=== PATIENT | male | born 1950 | race Caucasian/White ===

== ENCOUNTER 2023-07-07 09:39 | Outpatient (RCR) | payer MEDICARE, OTHER, SELFPAY | END 2023-07-07 23:59 | disposition home or self-care (01) | LOC: RPT 09:39 | PROVIDERS: ATTENDING PHYSICIAN Nurse Practitioner Adult Health; FAMILY PHYSICIAN Internal Medicine | DX: M54.2 Cervicalgia (principal); Z73.6 Limitation of activities due to disability | CPT/HCPCS: 97010; 97110; 97140; 97162; 97535 ==

== ENCOUNTER 2023-07-30 11:06 | Outpatient (RCR) | payer MEDICARE, OTHER, SELFPAY | END 2023-07-30 11:48 | disposition home or self-care (01) | LOC: RPT 11:06 | PROVIDERS: ATTENDING PHYSICIAN Nurse Practitioner Adult Health; FAMILY PHYSICIAN Internal Medicine | DX: M54.2 Cervicalgia (principal); Z73.6 Limitation of activities due to disability | CPT/HCPCS: 97010; 97110; 97112; 97140 ==

== ENCOUNTER → 2023-08-18 14:40 | Outpatient (REF) | payer MEDICARE, OTHER, SELFPAY ==
[2023-08-18 16:24] LABS: TSH Reflex To Free T4 0.67 uIU/ml (0.47-4.68)
== END ==
LOC: REG 14:40
PROVIDERS: ATTENDING PHYSICIAN Nurse Practitioner Adult Health
DX: E03.9 Hypothyroidism, unspecified (principal)
CPT/HCPCS: 36415; 84443

== ENCOUNTER → 2023-08-31 11:31 | Outpatient (REF) | payer MEDICARE, OTHER, SELFPAY ==
[2023-08-31 14:26] LABS: Urine Albumin Negative (Neg - Trace); Urine Bilirubin Negative (Negative); Urine Character Clear (Clear); Urine Color Yellow; Urine Glucose Negative (Negative); Urine Ketone Negative (Negative); Urine Leukocyte Negative (Negative); Urine Nitrite Negative (Negative); Urine Occult Blood Negative (Negative); Urine Urobilinogen Negative (Neg - 1+)
== END ==
LOC: REG 11:31
PROVIDERS: ATTENDING PHYSICIAN Nurse Practitioner Adult Health; REFERRING PHYSICIAN Specialist
DX: R10.9 Unspecified abdominal pain (principal)
CPT/HCPCS: 81003

== ENCOUNTER → 2023-09-08 | Outpatient (REF) | payer MEDICARE, OTHER, SELFPAY | LOC: DHSLP | PROVIDERS: ATTENDING PHYSICIAN Internal Medicine Critical Care Medicine; FAMILY PHYSICIAN Nurse Practitioner Adult Health | DX: G47.33 Obstructive sleep apnea (adult) (pediatric) (principal) | CPT/HCPCS: 95800 ==

== ENCOUNTER → 2023-10-09 14:11 | Outpatient (REF) | payer MEDICARE, OTHER, SELFPAY | LOC: HWRAD 14:11 | PROVIDERS: ATTENDING PHYSICIAN Nurse Practitioner Adult Health | DX: R10.9 Unspecified abdominal pain (principal); Q62.0 Congenital hydronephrosis | CPT/HCPCS: 76770 ==

== ENCOUNTER → 2023-12-09 10:44 | Outpatient (REF) | payer MEDICARE, OTHER, SELFPAY ==
[2023-12-09 12:43] LABS: ALT (SGPT) 24 U/L (0-50); AST (SGOT) 30 U/L (17-59); Albumin 4.5 g/dl (3.5-5.0); Alkaline Phosphatase 66 U/L (38-126); Blood Urea Nitrogen 18 mg/dl (9-20); Calcium 9.3 mg/dl (8.4-10.2); Carbon Dioxide 29 mmol/L (22-30); Chloride 102 mmol/L (98-107); Glucose 102 mg/dl (70-99); HDL Cholesterol 62 mg/dl; LDL Cholesterol, Calculated 78 mg/dl; Potassium 4.7 mmol/L (3.5-5.1); Sodium 138 mmol/L (135-145); Total Bilirubin 0.7 mg/dl (0.2-1.3); Total Cholesterol 155 mg/dl (50-199); Total Protein 7.2 g/dl (6.3-8.2); Triglyceride 75 mg/dl (10-149); Very Low Density Lipoprotein 15 mg/dl (0-30); eGFR > 60.00
[2023-12-09 13:12] LABS: TSH Reflex To Free T4 5.04 uIU/ml (0.47-4.68)
[2023-12-09 13:41] LABS: Free T4 0.75 ng/dl (0.78-2.19)
== END ==
LOC: REG 10:44
PROVIDERS: ATTENDING PHYSICIAN Nurse Practitioner Adult Health; FAMILY PHYSICIAN Internal Medicine
DX: E03.9 Hypothyroidism, unspecified (principal); E78.5 Hyperlipidemia, unspecified
CPT/HCPCS: 36415; 80053; 80061; 84439; 84443

== ENCOUNTER → 2023-12-16 10:16 | Outpatient (REF) | payer MEDICARE, OTHER, SELFPAY | LOC: RAD 10:16 | PROVIDERS: ATTENDING PHYSICIAN Specialist; FAMILY PHYSICIAN Internal Medicine | DX: Q62.11 Congenital occlusion of ureteropelvic junction (principal) | CPT/HCPCS: 78708; A9539 ==

== ENCOUNTER → 2024-01-27 11:48 | Outpatient (REF) | payer MEDICARE, OTHER, SELFPAY ==
[2024-01-27 16:54] LABS: TSH Reflex To Free T4 4.97 uIU/ml (0.47-4.68)
[2024-01-27 17:56] LABS: Free T4 0.73 ng/dl (0.78-2.19)
== END ==
LOC: HWRAD 11:48
PROVIDERS: ATTENDING PHYSICIAN Nurse Practitioner Adult Health
DX: R10.9 Unspecified abdominal pain (principal); Z87.19 Personal history of other diseases of the digestive system; E03.9 Hypothyroidism, unspecified
CPT/HCPCS: 36415; 74177; 84439; 84443; Q9967

== ENCOUNTER 2024-02-28 16:58 | Emergency (ER) | payer MEDICARE, OTHER, SELFPAY ==
--- NOTE | 2024-02-28 18:28 | ED.MUSCINJ ---
HPI-Injury
General
Chief Complaint: Musculo-Skeletal Complaint
Source: patient
Exam Limitations: none
Time Seen by Provider: 02/28/24 18:12
History of Present Illness-Injury
Initial Injury comments:
73-year-old male presents complaining of left flank pain after striking his flank on a near. He states he has a extensive history of spinal surgery and left kidney dysfunction. He is concerned that he ruin his spinal fusion or injured his kidney.
He is not anticoagulated. The pain is slightly improved since the onset of the pain. This started today.
Past History
Past History
ED Past Medical History: CAD, GERD, Other (Diverticular disease, thyroid disease, arthritis, cardiac stents, melanoma) and Other
Social History
Tobacco: Non-smoker
Alcohol: Occasional
Personal:
Employment: Retired
Family History
Family History: CAD
Phy Exam
Physical Exam
Physical Exam:
General: Well-appearing male no acute respiratory distress
HEENT: Normocephalic atraumatic
Heart: Regular rate and rhythm no murmur
Lungs: Clear breath sounds heard throughout
Musculoskeletal exam: Mild tenderness over the midline of the lumbar spine and left costovertebral angle tenderness
Extremities: No cyanosis or edema
Injury Course
Orders/Labs/Results
Orders:
Orders
02/28/24 18:23
CT Abd/pelvis W Iv Cont Urgent
Comment:
Reason For Exam: left flank injury
02/28/24 18:44
Complete Blood Count/With Diff Urgent
Comprehensive Metabolic Panel Urgent
Abnormal Lab Results
02/28/24
18:44
RBC 3.59 L 10^6/uL
(4.70-6.10)
Hgb 11.6 L g/dL
(13.0-18.0)
Hct 33.8 L %
(39.0-52.0)
MCV 94.2 H fL
(80.0-94.0)
MCH 32.3 H pg
(27.0-31.0)
Absolute Monos (auto) 0.9 H 10^3/uL
(0.1-0.6)
Monocytes % 14.1 H %
(1.7-9.3)
02/28/24 18:44
02/28/24 18:44
MDM/Problems Addressed
Differential Diagnosis Includes:
Left flank pain aftter after striking it. Consider contusion versus renal injury. Patient quite concerned about his kidney. CT of the abdomen and pelvis with IV contrast pending.
*Critical Care Note
Total Time (30-74mins, 75-104mins- exclusive of procedures): Not Applicable
Update Note
Update Note:
CT scan negative for acute traumatic injury. Patient reassured. I suspect underlying contusion. Recommended Tylenol for pain. Stable for discharge
ED Attending Note
-
Portions of this chart may have been created with voice recognition software.� Occasional wrong word or��sound alike� substitutions may have occurred due to the inherent limitations of voice recognition software.
Discharge Plan
Departure
Patient Disposition: Home (Routine Discharge)
Date of Disposition: 02/28/24
Time of Disposition: 20:26
Patient with high blood pressure during this ER visit?: No
Discharge Problem:
Contusion
Prescriptions:
No Action
latanoprost 1 DROP drops
1 drp BOTH EYES HS
doxycycline hyclate 50 MG capsule
50 mg PO DAILY
venlafaxine [Effexor XR] 150 MG capsule,extended release 24hr
150 mg PO DAILY
Patient Comments:
take with 75 mg capsule every morning
Rx Instructions:
takes with 75 mg daily
omeprazole 40 MG capsule,delayed release(DR/EC)
40 mg PO DAILY
lamotrigine 100 MG tablet
150 mg PO BID
zolpidem [Ambien CR] 6.25 MG tablet,ext release multiphase
6.25 mg PO HS
fexofenadine [Karolyn] 180 MG tablet
180 mg PO DAILY
venlafaxine [Effexor XR] 37.5 MG capsule,extended release 24hr
75 mg PO DAILY
Patient Comments:
take with 150mg capsules every morning
Rx Instructions:
takes with 150 mg daily
alclometasone 0.05 % Cream
1 applic TOPICAL BID PRN (Reason: eczema)
aspirin [Ecotrin Low Strength] 81 mg Tablet,Delayed Release (Dr/Ec)
81 mg PO DAILY
levothyroxine 25 mcg Tablet
25 mcg PO DAILY
clindamycin phosphate 1 % Gel
1 applic TOPICAL HS PRN (Reason: rosacea)
furosemide 20 mg Tablet
20 mg PO PRN PRN (Reason: ankle edema)
rosuvastatin [Crestor] 40 mg Tablet
40 mg PO DAILY
metronidazole 1 % Gel
1 applic TOPICAL PRN PRN (Reason: skin condition)
cholecalciferol (vitamin D3) [Vitamin D3] 25 mcg (1,000 unit) Tablet
25 mcg PO DAILY
Centrum 18-400 mg-mcg Tablet
1 tab PO DAILY
coQ10 (ubiquinol) 100 mg Capsule
100 mg PO DAILY
gabapentin 900 mg Tablet Extended Release 24 Hr
900 mg PO TID
Flucinonide Cream
1 dose topical PRN PRN (Reason: skin condition)
Probiotic
1 cap PO DAILY
biotin
500 mcg PO DAILY
vitamin [id number] acid
1 tab PO DAILY
acetaminophen [acetaminophen] 325 mg tablet
650 mg PO Q4HPRN PRN (Reason: mild pain) Qty: 1 0RF
ibuprofen 200 mg tablet
400 - 600 mg PO Q6HPRN PRN (Reason: moderate pain) Qty: 1 0RF
tramadol 50 mg tablet
50 mg PO Q6HPRN PRN (Reason: severe pain/breakthrough pain) Qty: 10 0RF
Referrals:
Roscoe Santizo MD [Family Provider] -
Activity Restrictions/Additional Instructions:
As discussed, there is no traumatic injury on the CAT scan. You likely have a contusion. Use ibuprofen or Tylenol if needed for pain. Return if needed
Interventions
Interventions:
*Risk Screen - Suicide Last Done: 02/28/24 17:44
*General Assessment Last Done: 02/28/24 17:44
*Neglect/Abuse Screening Last Done: 02/28/24 17:44
ED-Musculoskeletal Assessment Last Done: 02/28/24 17:21
Discharge Date and Time
Print Language: URDU
[2024-02-28 18:54] LABS: % Basophils 0.6 % (0-2); % Eosinophils 3.6 % (0-6); % Immature Granulocytes 0.3 % (0-0.5); % Monocytes 14.1 % (1.7-9.3); % Neutrophils 54.4 % (42.2-75.2); Absolute Eosinophils 0.2 10^3/uL (0-0.7); Absolute Lymphocytes 1.7 10^3/uL (1.2-3.4); Absolute Monocytes 0.9 10^3/uL (0.1-0.6); Absolute Neutrophils 3.5 10^3/uL (1.4-6.5); Hematocrit 33.8 % (39.0-52.0); Hemoglobin 11.6 g/dL (13.0-18.0); Mean Corp Hgb Conc. 34.3 g/dL (33.0-37.0); Mean Corpuscular Hgb 32.3 pg (27.0-31.0); Mean Corpuscular Volume 94.2 fL (80.0-94.0); Mean Platelet Volume 9.2 fL (7.4-10.4); Nucleated Red Blood Cells % 0 % (-); Platelet Count 258 10^3/uL (130-400); Red Blood Cell Count 3.59 10^6/uL (4.70-6.10); White Blood Cell Count 6.4 10^3/uL (4.8-10.8)
[2024-02-28 19:14] LABS: ALT (SGPT) 27 U/L (0-50); AST (SGOT) 34 U/L (17-59); Albumin 4.3 g/dl (3.5-5.0); Alkaline Phosphatase 71 U/L (38-126); Blood Urea Nitrogen 16 mg/dl (9-20); Calcium 9.4 mg/dl (8.4-10.2); Carbon Dioxide 25 mmol/L (22-30); Chloride 102 mmol/L (98-107); Glucose 95 mg/dl (70-99); Potassium 4.9 mmol/L (3.5-5.1); Sodium 139 mmol/L (135-145); Total Bilirubin 0.6 mg/dl (0.2-1.3); Total Protein 6.5 g/dl (6.3-8.2); eGFR > 60.00
[2024-02-28 20:15] VITALS: BP 168/88
[2024-02-28 20:38] VITALS: BP 168/88
== END 2024-02-28 20:39 | disposition home or self-care (01) ==
LOC: EMR 16:58
PROVIDERS: Physician Assistant; EMERGENCY PHYSICIAN Student in an Organized Health Care Education/Training Program; FAMILY PHYSICIAN Internal Medicine
DX: S30.1XXA Contusion of abdominal wall, initial encounter (principal); W22.09XA Striking against other stationary object, initial encounter
CPT/HCPCS: 99285; 74177; 80053; 85025; Q9967

== ENCOUNTER → 2024-06-09 11:26 | Outpatient (REF) | payer MEDICARE, OTHER, SELFPAY ==
[2024-06-09 14:02] LABS: ALT (SGPT) 21 U/L (0-50); AST (SGOT) 26 U/L (17-59); Albumin 4.4 g/dl (3.5-5.0); Alkaline Phosphatase 75 U/L (38-126); Blood Urea Nitrogen 16 mg/dl (9-20); Calcium 9.4 mg/dl (8.4-10.2); Carbon Dioxide 33 mmol/L (22-30); Chloride 96 mmol/L (98-107); Glucose 101 mg/dl (70-99); HDL Cholesterol 58 mg/dl; LDL Cholesterol, Calculated 59 mg/dl; Potassium 4.8 mmol/L (3.5-5.1); Sodium 136 mmol/L (135-145); Total Bilirubin 0.5 mg/dl (0.2-1.3); Total Cholesterol 136 mg/dl (50-199); Total Protein 6.7 g/dl (6.3-8.2); Triglyceride 98 mg/dl (10-149); Very Low Density Lipoprotein 19 mg/dl (0-30); eGFR > 60.00
[2024-06-09 14:26] LABS: PSA, Total - Screen 1.23 ng/ml (0.0-4.0); TSH Reflex To Free T4 4.81 uIU/ml (0.47-4.68)
[2024-06-09 14:54] LABS: Free T4 0.67 ng/dl (0.78-2.19)
== END ==
LOC: REG 11:26
PROVIDERS: ATTENDING PHYSICIAN Nurse Practitioner Adult Health; FAMILY PHYSICIAN Internal Medicine
DX: I10 Essential (primary) hypertension (principal); E03.9 Hypothyroidism, unspecified; Z12.5 Encounter for screening for malignant neoplasm of prostate
CPT/HCPCS: 36415; 80053; 80061; 84439; 84443; G0103

== ENCOUNTER → 2024-08-16 15:38 | Outpatient (REF) | payer MEDICARE, OTHER, SELFPAY ==
[2024-08-16 17:26] LABS: TSH Reflex To Free T4 6.77 uIU/ml (0.47-4.68)
[2024-08-16 17:55] LABS: Free T4 0.76 ng/dl (0.78-2.19)
== END ==
LOC: REG 15:38
PROVIDERS: ATTENDING PHYSICIAN Nurse Practitioner Adult Health
DX: E03.9 Hypothyroidism, unspecified (principal)
CPT/HCPCS: 36415; 84439; 84443

== ENCOUNTER → 2024-09-15 11:29 | Outpatient (REF) | payer MEDICARE, OTHER, SELFPAY ==
[2024-09-15 12:18] LABS: % Basophils 0.6 % (0-2); % Eosinophils 3.1 % (0-6); % Immature Granulocytes 0.3 % (0-0.5); % Lymphocytes 23.4 % (20.5-51.1); % Monocytes 12.6 % (1.7-9.3); Absolute Eosinophils 0.2 10^3/uL (0-0.7); Absolute Lymphocytes 1.5 10^3/uL (1.2-3.4); Absolute Monocytes 0.8 10^3/uL (0.1-0.6); Absolute Neutrophils 3.9 10^3/uL (1.4-6.5); Hematocrit 35.8 % (39.0-52.0); Mean Corp Hgb Conc. 33.5 g/dL (33.0-37.0); Mean Corpuscular Hgb 33.1 pg (27.0-31.0); Mean Corpuscular Volume 98.9 fL (80.0-94.0); Mean Platelet Volume 9.3 fL (7.4-10.4); Nucleated Red Blood Cells % 0 % (-); Platelet Count 298 10^3/uL (130-400); Red Blood Cell Count 3.62 10^6/uL (4.70-6.10); Red Cell Dist. Width 12.3 % (11.5-14.5); White Blood Cell Count 6.5 10^3/uL (4.8-10.8)
== END ==
LOC: REG 11:29
PROVIDERS: ATTENDING PHYSICIAN Nurse Practitioner Adult Health; FAMILY PHYSICIAN Psychiatry & Neurology Neurology
DX: R53.83 Other fatigue (principal); E03.9 Hypothyroidism, unspecified; G31.84 Mild cognitive impairment of uncertain or unknown etiology
CPT/HCPCS: 36415; 84443; 85025

== ENCOUNTER → 2024-09-20 12:38 | Outpatient (REF) | payer MEDICARE, OTHER, SELFPAY ==
[2024-09-20 16:23] LABS: Folate > 20.0 ng/ml (2.76-20); Vitamin B12 945 pg/ml (239-931)
== END ==
LOC: REG 12:38
PROVIDERS: ATTENDING PHYSICIAN Psychiatry & Neurology Neurology; FAMILY PHYSICIAN Nurse Practitioner Adult Health
DX: D51.9 Vitamin B12 deficiency anemia, unspecified (principal); D52.9 Folate deficiency anemia, unspecified; G31.84 Mild cognitive impairment of uncertain or unknown etiology
CPT/HCPCS: 36415; 82607; 82746

== ENCOUNTER → 2024-11-19 11:51 | Outpatient (REF) | payer MEDICARE, OTHER, SELFPAY | LOC: RAD 11:51 | PROVIDERS: ATTENDING PHYSICIAN Nurse Practitioner Adult Health | DX: R05.3 Chronic cough (principal) | CPT/HCPCS: 71046 ==

== ENCOUNTER → 2024-12-10 11:37 | Outpatient (REF) | payer MEDICARE, OTHER, SELFPAY ==
[2024-12-10 12:51] LABS: ALT (SGPT) 24 U/L (0-50); AST (SGOT) 26 U/L (17-59); Albumin 4.2 g/dl (3.5-5.0); Alkaline Phosphatase 60 U/L (38-126); Blood Urea Nitrogen 22 mg/dl (9-20); Calcium 9.8 mg/dl (8.4-10.2); Carbon Dioxide 32 mmol/L (22-30); Chloride 106 mmol/L (98-107); Glucose 103 mg/dl (70-99); HDL Cholesterol 62 mg/dl; LDL Cholesterol, Calculated 68 mg/dl; Potassium 5.3 mmol/L (3.5-5.1); Sodium 139 mmol/L (135-145); Total Protein 6.6 g/dl (6.3-8.2); Very Low Density Lipoprotein 14 mg/dl (0-30); eGFR > 60.00
[2024-12-10 13:23] LABS: TSH 2.42 uIU/ml (0.47-4.68)
[2024-12-10 14:27] LABS: Glycohemoglobin (HgbA1c) 5.6 % (4.0-5.6)
== END ==
LOC: REG 11:37
PROVIDERS: ATTENDING PHYSICIAN Nurse Practitioner Adult Health
DX: E03.9 Hypothyroidism, unspecified (principal); E78.5 Hyperlipidemia, unspecified; I10 Essential (primary) hypertension; R73.01 Impaired fasting glucose
CPT/HCPCS: 36415; 80053; 80061; 83036; 84443

== ENCOUNTER → 2024-12-26 10:32 | Outpatient (REF) | payer MEDICARE, OTHER, SELFPAY | LOC: RAD 10:32 | PROVIDERS: ATTENDING PHYSICIAN Specialist; FAMILY PHYSICIAN Nurse Practitioner Adult Health | DX: Q62.0 Congenital hydronephrosis (principal) | CPT/HCPCS: 78708; A9539 ==

== ENCOUNTER → 2025-01-25 15:19 | Outpatient (REF) | payer MEDICARE, OTHER, SELFPAY ==
[2025-01-25 16:51] LABS: Carbon Dioxide 31 mmol/L (22-30); Chloride 101 mmol/L (98-107); Potassium 5.0 mmol/L (3.5-5.1); Sodium 138 mmol/L (135-145)
== END ==
LOC: REG 15:19
PROVIDERS: ATTENDING PHYSICIAN Nurse Practitioner Adult Health
DX: F31.9 Bipolar disorder, unspecified (principal); E87.5 Hyperkalemia
CPT/HCPCS: 36415; 80051

== ENCOUNTER → 2025-02-01 15:57 | Outpatient (REF) | payer MEDICARE, OTHER, SELFPAY | LOC: CLAB 15:57 | PROVIDERS: ATTENDING PHYSICIAN Specialist | DX: D29.0 Benign neoplasm of penis (principal) | CPT/HCPCS: 88305 ==

== ENCOUNTER 2025-04-25 06:20 | Day surgery (SDC) | payer MEDICARE, OTHER, SELFPAY | END 2025-04-25 09:16 | disposition home or self-care (01) | LOC: GI 06:20 | PROVIDERS: ATTENDING PHYSICIAN Internal Medicine Gastroenterology | DX: Z12.11 Encounter for screening for malignant neoplasm of colon (principal); K57.30 Diverticulosis of large intestine without perforation or abscess without bleeding; K64.9 Unspecified hemorrhoids; D12.0 Benign neoplasm of cecum; D12.3 Benign neoplasm of transverse colon | CPT/HCPCS: 45380; 88305 ==

== ENCOUNTER → 2025-04-30 08:24 | Outpatient (REF) | payer MEDICARE, OTHER, SELFPAY | LOC: PAVMRI 08:24 | PROVIDERS: ATTENDING PHYSICIAN Psychiatry & Neurology Neurology; FAMILY PHYSICIAN Nurse Practitioner Adult Health | DX: M48.061 Spinal stenosis, lumbar region without neurogenic claudication (principal) | CPT/HCPCS: 72148 ==

== ENCOUNTER → 2025-06-05 19:15 | Outpatient (REF) | payer MEDICARE, OTHER, SELFPAY | LOC: MRI 19:15 | PROVIDERS: ATTENDING PHYSICIAN Psychiatry & Neurology Neurology; FAMILY PHYSICIAN Nurse Practitioner Adult Health; REFERRING PHYSICIAN Orthopaedic Surgery Orthopaedic Surgery of the Spine | DX: M47.14 Other spondylosis with myelopathy, thoracic region (principal) | CPT/HCPCS: 72157; A9575 ==

== ENCOUNTER → 2025-06-06 12:26 | Outpatient (REF) | payer MEDICARE, OTHER, SELFPAY ==
[2025-06-06 14:28] LABS: ALT (SGPT) 24 U/L (0-50); AST (SGOT) 32 U/L (17-59); Albumin 4.4 g/dl (3.5-5.0); Alkaline Phosphatase 70 U/L (38-126); Blood Urea Nitrogen 15 mg/dl (9-20); Calcium 9.4 mg/dl (8.4-10.2); Carbon Dioxide 27 mmol/L (22-30); Chloride 103 mmol/L (98-107); Glucose 101 mg/dl (70-99); HDL Cholesterol 56 mg/dl; LDL Cholesterol, Calculated 73 mg/dl; Potassium 4.8 mmol/L (3.5-5.1); Sodium 137 mmol/L (135-145); Total Protein 7.0 g/dl (6.3-8.2); Very Low Density Lipoprotein 15 mg/dl (0-30); eGFR > 60.00
[2025-06-07 10:45] LABS: Glycohemoglobin (HgbA1c) 5.7 % (4.0-5.9)
== END ==
LOC: RAD 12:26
PROVIDERS: ATTENDING PHYSICIAN Nurse Practitioner Adult Health
DX: I10 Essential (primary) hypertension (principal); E78.5 Hyperlipidemia, unspecified; R73.01 Impaired fasting glucose; E87.5 Hyperkalemia
CPT/HCPCS: 36415; 80053; 80061; 83036